=== PATIENT | female | born 1995 ===

== ENCOUNTER → 2019-09-21 10:26 | Outpatient (CLI) | payer OTHER | END | disposition home or self-care (01) | LOC: LAB 10:26 | DX: D68.0 Von Willebrand disease (principal); R79.1 Abnormal coagulation profile; I10 Essential (primary) hypertension; D50.0 Iron deficiency anemia secondary to blood loss (chronic); R23.3 Spontaneous ecchymoses ==

== ENCOUNTER → 2019-09-25 08:58 | Outpatient (CLI) | payer OTHER | END | disposition home or self-care (01) | LOC: LAB 08:58 | DX: M79.81 Nontraumatic hematoma of soft tissue (principal); E03.8 Other specified hypothyroidism ==